=== PATIENT | female | born 1970 | race Caucasian/White ===

== ENCOUNTER → 2016-10-24 | Outpatient (CLI) | payer BC, OTHER ==
--- NOTE | 2016-10-26 08:23 | Diagnostic Imaging Report ---
INDICATION: Digital mammogram bilateral screening with Tomosynthesis. This study was compared to prior exams of 10/24/15, 09/06/14 and 08/24/13. At this time there are no current complaints. The current study was also evaluated with a Computer Aided Detection (CAD) system. The fibroglandular tissue in both breasts is heterogeneously dense. This does limit the sensitivity of this exam. On the craniocaudad view of the left breast in the retroareolar region roughly 3 CM from the nipple there is a suggestion of architectural distortion. There is no corresponding abnormality seen on the MLO view of the left breast and the tomographic views are not convincing for an underlying malignant process in this area. This appearance may be due to fibroglandular tissue alone. Even so, I would recommend that ultrasound of the left retroareolar region be performed for further study. The overall appearance of the breasts is otherwise unchanged. There is no primary or secondary sign of malignancy noted. IMPRESSION: Ultrasound would be recommended for further evaluation of the retroareolar region of the left breast. ACR BI-RADS Category 0: Incomplete. (Needs additional imaging evaluation). Result letter will be mailed to the patient. Note: At least 10% of breast cancer is not imaged by mammography. Dictated by: Dictated on workstation # [id number]
== END ==
LOC: RAD 15:18
PROVIDERS: ATTEND Family Medicine
DX: Z12.31 Encounter for screening mammogram for malignant neoplasm of breast (principal)
CPT/HCPCS: 77067

== ENCOUNTER → 2016-11-13 | Outpatient (CLI) | payer BC, OTHER ==
--- NOTE | 2016-11-13 21:15 | Diagnostic Imaging Report ---
Left breast ultrasound. INDICATION: Asymmetry along the retroareolar region of the left breast seen on mammography with question of architectural distortion that does not confirmed on tomographic views. FINDINGS: The retroareolar region and 4 quadrants of the left breast were scanned with no significant abnormality seen. A septated, but otherwise simple-appearing cyst measuring 6 mm is seen at 12 o'clock zone 2 cm from the nipple. There is no suspicious mass. IMPRESSION: No suspicious mass. The questioned architectural distortion and asymmetry on the mammogram in the left periareolar region could be related to summation artifact of parenchyma. A six-month followup left breast mammogram is recommended to ensure no adverse development. ACR BI-RADS Category 3: Probably benign findings. Dictated by: Dictated on workstation # [id number]
== END ==
LOC: RAD 14:06
PROVIDERS: ATTEND Family Medicine
DX: N64.89 Other specified disorders of breast (principal)
CPT/HCPCS: 76641

== ENCOUNTER → 2017-05-26 | Outpatient (CLI) | payer BC, OTHER ==
--- NOTE | 2017-05-26 19:39 | Diagnostic Imaging Report ---
INDICATION: Six-month followup of left breast questionable architectural distortion. Correlation is made with mammogram from 10/24/2016. The current study was also evaluated with a Computer Aided Detection (CAD) system. 3-D CC, ML and MLO views of the left breast were obtained. FINDINGS: The area of questionable architectural distortion in the retroareolar left breast on prior study is not appreciated on this current exam. No mass is seen. There are scattered benign calcifications throughout the left breast. The left axilla is unremarkable. IMPRESSION: No mammographic features suspicious for malignancy are identified. Patient should return in 6 months for bilateral screening mammography. ACR BI-RADS Category 2: Benign findings. Result letter will be mailed to the patient. Note: At least 10% of breast cancer is not imaged by mammography. Dictated by: Dictated on workstation # [id number]
== END ==
LOC: RAD 13:55
PROVIDERS: ATTEND Family Medicine
DX: N64.89 Other specified disorders of breast (principal)

== ENCOUNTER → 2017-11-10 | Outpatient (CLI) | payer BC, OTHER ==
--- NOTE | 2017-11-10 17:39 | Diagnostic Imaging Report ---
INDICATION: Routine screening. Comparison is made with prior mammograms from 10/24/2016 and 10/24/2015. 2-D and 3-D bilateral screening mammography was performed with CAD. The current study was also evaluated with a Computer Aided Detection (CAD) system. FINDINGS: Both breasts are heterogeneously dense, limiting the sensitivity of mammography. Scattered benign-appearing calcifications are identified bilaterally. Benign-appearing nodular densities are noted bilaterally and appear stable. No spiculated mass or malignant-appearing microcalcifications are seen. The axillae are unremarkable. IMPRESSION: No mammographic features suspicious for malignancy are identified. ACR BI-RADS Category 2: Benign findings. Result letter will be mailed to the patient. Note: At least 10% of breast cancer is not imaged by mammography. Dictated by: Dictated on workstation # [id number]
== END ==
LOC: RAD 08:54
PROVIDERS: ATTEND Family Medicine
DX: Z12.31 Encounter for screening mammogram for malignant neoplasm of breast (principal)
CPT/HCPCS: 77067

== ENCOUNTER → 2018-12-14 | Outpatient (CLI) | payer BC, OTHER ==
--- NOTE | 2018-12-14 09:01 | Diagnostic Imaging Report ---
INDICATION: Routine screening. COMPARISON: 11/10/2017 and 10/24/2016. TECHNIQUE: 2D and 3D bilateral screening mammography was performed with CAD. FINDINGS: Both breasts are heterogeneously dense, limiting the sensitivity of mammography. Benign calcifications are again noted. No spiculated mass or malignant appearing microcalcifications are seen. The axillae are unremarkable. The intraparenchymal lymph node in the upper-outer left breast is again seen. IMPRESSION: No mammographic features suspicious for malignancy are identified. ACR BI-RADS Category 2: Benign findings. Result letter will be mailed to the patient. Note: At least 10% of breast cancer is not imaged by mammography. Dictated by: Dictated on workstation # [id number]
== END ==
LOC: RAD 07:28
PROVIDERS: ATTEND Family Medicine
DX: Z12.31 Encounter for screening mammogram for malignant neoplasm of breast (principal)
CPT/HCPCS: 77067

== ENCOUNTER → 2020-05-26 | Outpatient (CLI) | payer BC, OTHER ==
--- NOTE | 2020-05-28 18:34 | Diagnostic Imaging Report ---
INDICATION: Screening. At this time there are no current complaints. EXAMINATION: Digital mammogram bilateral screening with CAD. 3D tomographic images were obtained and reviewed. The current study was also evaluated with a Computer Aided Detection (CAD) system. COMPARISON: This study was compared to the prior exams of 12/14/2018, 11/10/2017, 05/26/2017 and 10/24/2016. FINDINGS: The fibroglandular tissue in both breasts is heterogeneously dense. This does limit the sensitivity of this exam. Overall, there does not appear to have been any significant change when compared to the prior study. No primary or secondary sign of malignancy is noted. The numerous benign-appearing calcifications scattered throughout the left breast, seen previously, are again evident and seem stable. IMPRESSION: There is no radiographic evidence for malignancy. ACR BI-RADS Category 1: Negative. Result letter will be mailed to the patient. Note: At least 10% of breast cancer is not imaged by mammography. Dictated by: Dictated on workstation # [id number]
== END ==
LOC: RAD 10:02
PROVIDERS: ATTEND Family Medicine
DX: Z12.31 Encounter for screening mammogram for malignant neoplasm of breast (principal)
CPT/HCPCS: 77063; 77067

== ENCOUNTER → 2020-10-11 | Outpatient (CLI) | payer BC, OTHER ==
--- NOTE | 2020-10-11 14:40 | Diagnostic Imaging Report ---
PROCEDURE: US carotid duplex, bilateral. TECHNIQUE: Multiple Real-time grayscale images were obtained over the carotid arteries in various projections, bilaterally. Additional spectral analysis and color Doppler duplex images were also obtained. INDICATION: Retinal vein occlusion. FINDINGS: No significant plaquing is identified in either carotid system. The velocities are normal bilaterally. No velocity elevation or stenosis is identified. Both vertebral arteries show antegrade flow. IMPRESSION: No evidence of a hemodynamically significant stenosis. Parameters based on the consensus panel Villegas-Scale and Doppler ultrasound criteria published January 2003, Radiology, Volume 229. DOPPLER (peak systolic velocity M/S Right Left CCA 1 1.2 ICA Proximal .63 .67 ICA Mid .71 .84 ICA Distal .84 .62 RATIO .85 .70 ECA 1.02 .82 VERT .46 .63 Dictated by: Dictated on workstation # [id number]
== END ==
LOC: CARD 13:00
PROVIDERS: ATTEND Family Medicine
DX: H34.8132 Central retinal vein occlusion, bilateral, stable (principal)
CPT/HCPCS: 93306; 93880

== ENCOUNTER 2020-11-16 05:31 | Outpatient (RCR) | payer BC, OTHER ==
[~2020-11-16] VITALS: Ht 177.8 cm; Wt 96.7 kg
[~2020-11-16 05:31] MED LIST: CETI1TAB86 PO; FLUT16SP22 NS; LEVO-129 PO; OMEP40CA6 PO
== END 2020-11-16 12:06 | disposition home or self-care (01) ==
LOC: PREOP 05:31
PROVIDERS: ATTEND Surgery
DX: Z01.818 Encounter for other preprocedural examination (principal); Z12.11 Encounter for screening for malignant neoplasm of colon; K21.9 Gastro-esophageal reflux disease without esophagitis; Z20.822 Contact with and (suspected) exposure to COVID-19
CPT/HCPCS: 87635

== ENCOUNTER 2020-11-20 07:59 | Day surgery (SDC) | payer BC, OTHER ==
[~2020-11-20] VITALS: Ht 177.8 cm; Wt 96.7 kg
[~2020-11-20 07:59] MED LIST changes: +LACTATED RINGERS 1,000 ML IV STA
[2020-11-20] MEDS ORDERED: HURRICAINE EXT TUBE (BENZOCAINE) XX PRN (08:00)
[2020-11-20 08:18] VITALS: BP 105/81
--- NOTE | 2020-11-20 08:23 | Progress Note-Pre Operative ---
Pre-Operative Progress Note H&P Reviewed The H&P was reviewed, patient examined and no changes noted. Time Seen by Provider: 08:17 Date H&P Reviewed: Nov 20, 2020 Time H&P Reviewed: 08:17 Pre-Operative Diagnosis: screening colonoscopy, GERD, Dysphagia NICK CANDELARIO DO Nov 20, 2020 08:23
[2020-11-20] MEDS ORDERED: PROPOFOL INJECTION 50 ML IV ONE (09:21)
[2020-11-20 09:55] VITALS: BP 115/77
[2020-11-20 10:00] VITALS: BP 113/63
--- NOTE | 2020-11-20 10:00 | Progress Note-Post Operative ---
Post-Operative Progess Note Surgeon (s)/Log Scaler (s) Surgeon NICK CANDELARIO DO Log Scaler: Gil Joe, MSIII Pre-Operative Diagnosis screening colonoscopy, GERD, Dysphagia Post-Operative Diagnosis Gastritis Lg hiatal hernia diverticula int hemorrhoids Procedure & Operative Findings Date of Procedure 11/20/20 Procedure Performed/Findings EGD with bx Colonoscopy PROCEDURE NOTE: After informed consent was obtained, the patient was brought to the endoscopy suite, placed in bed in left lateral decubitus position. She was administered IV sedation by the PUBLIC HEALTH CLINICAL NURSE SPECIALIST who then monitored vitals the entire time, heart rate, blood pressure and pulse ox and the scope was inserted down the mouth through the esophagus into the stomach. On the way down, noted a hiatal hernia but no signs of stricture or anything that could cause Dysphagia. I pushed into the stomach and noted mild gastritis of the antrum and took a picture. Then pushed past the antrum into the duodenum; looked good. Pulled back and did a biopsy of antrum, then retroflexed the scope, saw a large hiatal hernia, took a picture of this and then pulled the scope into the GE junction, took another picture of the hiatal hernia and then did a biopsy of the GE junction. Pushed the scope back into the stomach, suctioned all the air out of the stomach. At this point pulled the scope up the esophagus and out the mouth. Switched camera, switched gloves, went down below, started the colonoscopy. Pushed all the way into about 140 cm to get all the way to cecum, took a picture of the appendiceal orifice, noted the ileocecal valve and then slowly withdrew the scope, insufflating to look circumferentially at the fregoso. Starting in the cecum, going up the ascending colon to the hepatic flexure, then down the transverse colon to the splenic flexure, into the descending colon and down into the sigmoid. Throughout the descending and sigmoid I saw some diverticula and took a picture of them. Finally into the rectum, retroflexed in the rectal vault, saw some minimal internal hemorrhoids and took a picture of this. The patient tolerated the procedure and she recovered in the endoscopy suite. Anesthesia Type IV sedation by PUBLIC HEALTH CLINICAL NURSE SPECIALIST Estimated Blood Loss Estimated blood loss (mL): scant Specimens/Packing Specimens Removed antral bx GE jxn bx NICK CANDELARIO DO Nov 20, 2020 10:00
--- NOTE | 2020-11-20 10:01 | Endoscopy Discharge Instruct ---
Endo Procedure/Findings Findings 1.: Gastritis 2.: Hiatal Hernia 3.: Diverticulosis 4.: Internal Hemorrhoids Discharge Instructions - Activity: You might feel a little sleepy until tomorrow. This is due to the medicine you received to relax you. Until tomorrow, you should: NOT drive a car, operate machinery or power tools. NOT drink any alcoholic beverages. NOT make any important decisions or sign importortant papers. Do not return to work until tomorrow, unless otherwise instructed. Resume previous activities tomorrow. Diet: Start by taking liquids. If you tolerate liquids, advance to solid food. 1.: EGD in 1 year 2.: Colonscopy in 10 years Notify Physician - If you experience excessive bleeding, unusual abdominal pain, fever, or chest pain, contact your doctor immediately. NICK CANDELARIO DO Nov 20, 2020 10:01
[2020-11-20 10:05] VITALS: BP_SYST 114; BP_SYST 116; BP_DIAS 72; BP_DIAS 74
--- NOTE | 2020-11-20 10:27 | Anesthesia-General Post-Op ---
MAC Patient Condition Mental Status/LOC: Same as Preop Cardiovascular: Satisfactory Nausea/Vomiting: Absent Respiratory: Satisfactory Pain: Controlled Complications: Absent Post Op Complications Complications None Follow Up Care/Instructions Patient Instructions None needed. Anesthesiology Discharge Order Discharge Order Patient is doing well, no complaints, stable vital signs, no apparent adverse anesthesia problems. No complications reported per nursing. ALEXI MADRIGAL CRNA Nov 20, 2020 10:27
[2020-11-20 10:33] VITALS: BP 106/81
== END 2020-11-20 10:33 ==
LOC: ENDO 07:59
PROVIDERS: ATTEND Surgery
DX: Z12.11 Encounter for screening for malignant neoplasm of colon (principal); K21.00 Gastro-esophageal reflux disease with esophagitis, without bleeding; K31.89 Other diseases of stomach and duodenum; K29.50 Unspecified chronic gastritis without bleeding; K44.9 Diaphragmatic hernia without obstruction or gangrene; K57.30 Diverticulosis of large intestine without perforation or abscess without bleeding; K64.8 Other hemorrhoids; E66.9 Obesity, unspecified; Z68.31 Body mass index [BMI] 31.0-31.9, adult; Z79.899 Other long term (current) drug therapy
CPT/HCPCS: 84703

== ENCOUNTER → 2021-06-08 | Outpatient (CLI) | payer BC, OTHER ==
[~2021-06-08] MED LIST changes: -LACTATED RINGERS 1,000 ML IV STA
--- NOTE | 2021-06-08 11:15 | Diagnostic Imaging Report ---
INDICATION: Routine screening. COMPARISON is made with prior mammograms 05/26/2020 and 12/14/2018. 2-D and 3-D bilateral screening mammography was performed with CAD. Both breasts are heterogeneously dense, limiting the sensitivity of mammography. Scattered benign calcifications are noted bilaterally. No spiculated mass or malignant appearing microcalcifications are seen. Axillae are unremarkable. IMPRESSION: BI-RADS Category 2 No mammographic features suspicious for malignancy are identified. ACR BI-RADS Category 2: Benign findings. Result letter will be mailed to the patient. Note: At least 10% of breast cancer is not imaged by mammography. Dictated by: Dictated on workstation # [id number]
== END ==
LOC: RAD 07:19
PROVIDERS: ATTEND Family Medicine
DX: Z12.31 Encounter for screening mammogram for malignant neoplasm of breast (principal)
CPT/HCPCS: 77063; 77067

== ENCOUNTER → 2021-07-10 | Outpatient (CLI) | payer BC, OTHER ==
--- NOTE | 2021-07-10 08:32 | Diagnostic Imaging Report ---
PROCEDURE: US Gallbladder. TECHNIQUE: Multiple real-time grayscale images were obtained over the right upper quadrant in various projections. INDICATION: Epigastric pain FINDINGS: The liver is normal in size without focal lesions. There is hepatopetal flow in main portal vein. There is no biliary duct dilatation. Common bile duct measures 4 mm. There is no cholelithiasis, gallbladder wall thickening or pericholecystic fluid. Pancreas is unremarkable. Aorta is nonaneurysmal. IVC is patent. Right kidney is normal. No ascites. IMPRESSION: Unremarkable right upper quadrant ultrasound. Dictated by: Dictated on workstation # [id number]
== END ==
LOC: RAD 07:15
PROVIDERS: ATTEND Family Medicine
DX: R10.13 Epigastric pain (principal)
CPT/HCPCS: 76705

== ENCOUNTER → 2021-07-23 | Outpatient (CLI) | payer BC, OTHER ==
[~2021-07-23] MED LIST changes: +CATHETER FLUSH 10 ML SYR IVP PRN
--- NOTE | 2021-07-23 15:23 | Diagnostic Imaging Report ---
INDICATION: Right upper quadrant pain. FINDINGS: 5 mCi tech 99M mebrofenin was utilized. FINDINGS: There is prompt uptake of isotope by the liver. Gallbladder visualizes in a normal fashion. There is free flow of isotope into the small bowel. Following 8 ounces of Ensure, 45 minutes of imaging shows an ejection fraction at 60%. IMPRESSION: Normal hepatobiliary study with good ejection fraction following fatty meal stimulation. Dictated by: Dictated on workstation # [id number]
== END ==
LOC: CARD 12:45
PROVIDERS: ATTEND Family Medicine
DX: R10.11 Right upper quadrant pain (principal)
CPT/HCPCS: 78227; A9537